=== PATIENT | female | born 1965 | race African-American/Black ===

== ENCOUNTER 2016-10-27 04:14 | Inpatient (IN) | payer OTHER ==
[~2016-10-27] VITALS: Ht 167.6 cm; Wt 100.0 kg
[~2016-10-27 04:14] MED LIST: EXEN10PE SQ; GLIP5 PO; GLUCTAB PO; HYDR-2768 PO; LANTUSP SQ; LOSA25TA31 PO; LOVA40TA PO; METO50TA PO; PROT40TA PO
[2016-10-27 04:18] VITALS: BP 206/110; PULSE 97; RESP 14; TEMP 98.9; O2SAT 97
[2016-10-27] MEDS ORDERED: SODIUM CHLOR 0.9% 1000 ML INJ 1,000 ML IV SCH ×2 (04:31→11:30)
[2016-10-27 04:33] VITALS: O2SAT 97
[2016-10-27] MEDS ORDERED: HYDR25TA5 PO (04:37)
[2016-10-27] MEDS ORDERED: LOSA100T PO (04:37)
[2016-10-27] MEDS ORDERED: OMEP40CA2 PO (04:37)
[2016-10-27] MEDS ORDERED: METF1000 PO (04:37)
[2016-10-27] MEDS ORDERED: METO50TA PO (04:37)
[2016-10-27] MEDS ORDERED: MORPHINE SULFATE 4 MG/ML INJ IV PUSH ONE ×2 (04:45→07:00)
[2016-10-27] MEDS ORDERED: ONDANSETRON HCL 4 MG/2 ML VIAL IVP ONE (04:45)
[2016-10-27] MEDS ORDERED: SODIUM CHLORIDE 0.9% FLUSH 10 ML FLUSH IV FLUSH PRN ×2 (04:45→21:15)
--- NOTE | 2016-10-27 04:53 | PD ---
HPI Chief Complaint: Abdominal Pain Time Seen by Provider: 04:25 Travel History International Travel<30 days: No Contact w/Intl Traveler<30days: No Traveled to known affect area: No History of Present Illness HPI This is a 51-year-old female who presents to the emergency department with abdominal pain that's been present for 3 days, constant, moderate severity, feeling like her abdomen is bloated. She says her last bowel movement was 3 days ago. She says she hasn't passed gas in 24 hours, and she feels nauseous. She's not had any belching. She says this feels similar to 2 years ago right after she had her gastric bypass surgery when they thought she had a bowel obstruction. At that time Dr. Santacruz told her he didn't think that's what was going on. She denies any fevers but does say she's been having some sweats. PFSH Past Medical History Heart Rhythm Problems: No Cancer: No Cardiac Catheterization: No Cardiovascular Problems: No High Cholesterol: No Chest Pain: No Congestive Heart Failure: No Diabetes: Yes Patient Takes Glucophage: No Endocrine: Yes Gastrointestinal Disorders: Yes (GERD) GERD: Yes Genitourinary: No Hepatitis: No Hiatal Hernia: No Heparin Induced Thrombocytopen: No Hypertension: Yes Immune Disorder: No Musculoskeletal: Yes (NECK) Neurologic: No Psychiatric: No Reproductive: No Respiratory: No Myocardial Infarction: No Thyroid Disease: No ?: Not Tubal Ligation: Yes Past Surgical History AICD: No Body Medical Devices: LEFT HIP PINS Coronary Artery Bypass Graft: No Gynecologic Surgery: Yes (TUBAL LIG.) Joint Replacement: No Pacemaker: No Thoracic Surgery: Yes (THIS ADMISSION: [facility] AND Y) Other Surgery: Yes (gastric bypass) Social History Alcohol Use: No Tobacco Use: No Substance Use: No Allergies-Medications (Allergen,Severity, Reaction): Coded Allergies: No Known Allergies (Verified , 10/27/16) Reported Meds & Prescriptions Reported Meds & Active Scripts Active Reported Omeprazole 40 Mg Cap 40 Mg PO DAILY Metoprolol Tartrate 50 Mg Tab 50 Mg PO BID Metformin (Metformin HCl) 1,000 Mg Tab 1,000 Mg PO BIDPC With meals Losartan (Losartan Potassium) 100 Mg Tab 100 Mg PO DAILY Hydrochlorothiazide 25 Mg Tab 25 Mg PO DAILY Review of Systems Except as stated in HPI: all other systems reviewed are Neg Physical Exam Narrative GENERAL:Well appearing, no acute distress SKIN: Focused skin assessment warm and dry. HEAD: Atraumatic. Normocephalic. EYES: Pupils equal and round. No injection or drainage. ENT: Moist mucous membranes NECK: Trachea midline. CARDIOVASCULAR: Regular rate and rhythm. No murmur appreciated. RESPIRATORY: Clear to auscultation. Breath sounds equal bilaterally. GASTROINTESTINAL: Abdomen soft, tender to palpation diffusely with no rebound or guarding. Bowel sounds in all 4 quadrants. MUSCULOSKELETAL: No obvious deformities. NEUROLOGICAL: Awake and alert. No obvious cranial nerve deficits. Moving all extremities. PSYCHIATRIC: Appropriate mood and affect; insight and judgment normal. Data Data Last Documented VS Vital Signs Date Time Temp Pulse Resp B/P Pulse Ox O2 Delivery O2 Flow Rate FiO2 10/27/16 05:29 16 10/27/16 04:33 97 10/27/16 04:18 98.9 97 206/110 Room Air Orders Complete Blood Count With Diff (10/27/16 04:31) Comprehensive Metabolic Panel (10/27/16 04:31) Lipase (10/27/16 04:31) Urinalysis - C+S If Indicated (10/27/16 04:31) Ct Abd/Pel W Iv Contrast(Rout) (10/27/16 04:31) Iv Access Insert/Monitor (10/27/16 04:31) Ecg Monitoring (10/27/16 04:31) Oximetry (10/27/16 04:31) Morphine Inj (Morphine Inj) (10/27/16 04:45) Ondansetron Inj (Zofran Inj) (10/27/16 04:45) Sodium Chlor 0.9% 1000 Ml Inj (Ns 1000 M (10/27/16 04:31) Sodium Chloride 0.9% Flush (Ns Flush) (10/27/16 04:45) Iohexol 350 Inj (Omnipaque 350 Inj) (10/27/16 05:47) Consult General Surgery (10/27/16 ) Admit Order (Ed Use Only) (10/27/16 ) Labs Laboratory Tests Test 10/27/16 10/27/16 04:45 06:05 White Blood Count 9.3 TH/MM3 Red Blood Count 4.74 MIL/MM3 Hemoglobin 12.7 GM/DL Hematocrit 38.1 % Mean Corpuscular Volume 80.3 FL Mean Corpuscular Hemoglobin 26.8 PG Mean Corpuscular Hemoglobin 33.4 % Concent Red Cell Distribution Width 14.2 % Platelet Count 278 TH/MM3 Mean Platelet Volume 6.9 FL Neutrophils (%) (Auto) 71.6 % Lymphocytes (%) (Auto) 21.1 % Monocytes (%) (Auto) 5.8 % Eosinophils (%) (Auto) 0.8 % Basophils (%) (Auto) 0.7 % Neutrophils # (Auto) 6.6 TH/MM3 Lymphocytes # (Auto) 2.0 TH/MM3 Monocytes # (Auto) 0.5 TH/MM3 Eosinophils # (Auto) 0.1 TH/MM3 Basophils # (Auto) 0.1 TH/MM3 CBC Comment DIFF FINAL Differential Comment Sodium Level 137 MEQ/L Potassium Level 3.7 MEQ/L Chloride Level 99 MEQ/L Carbon Dioxide Level 27.4 MEQ/L Anion Gap 11 MEQ/L Blood Urea Nitrogen 4 MG/DL Creatinine 0.50 MG/DL Estimat Glomerular Filtration 156 ML/MIN Rate Random Glucose 149 MG/DL Calcium Level 9.5 MG/DL Total Bilirubin 0.4 MG/DL Aspartate Amino Transf 17 U/L (AST/SGOT) Alanine Aminotransferase 46 U/L (ALT/SGPT) Alkaline Phosphatase 122 U/L Total Protein 7.7 GM/DL Albumin 3.8 GM/DL Lipase 87 U/L Urine Color LIGHT-YELLOW Urine Turbidity HAZY Urine pH 6.5 Urine Specific [place] 1.013 Urine Protein NEG mg/dL Urine Glucose (UA) NEG mg/dL Urine Ketones NEG mg/dL Urine Occult Blood NEG Urine Nitrite NEG Urine Bilirubin NEG Urine Urobilinogen LESS THAN 2.0 MG/DL Urine Leukocyte Esterase NEG Urine RBC 1 /hpf Urine WBC 1 /hpf Urine Squamous Epithelial 24 /hpf Cells Urine Bacteria MANY /hpf Urine Mucus FEW /lpf Microscopic Urinalysis Comment CULT NOT INDICATED MDM Medical Decision Making Medical Screen Exam Complete: Yes Emergency Medical Condition: Yes Interpretation(s) Afebrile, mild tachycardia, hypertension No leukocytosis Electrolytes are reassuring Lipase is normal Urinalysis: No infection Last 24 hours Impressions Abdomen/Pelvis CT 10/27/16 0431 Signed Impressions: Service Date/Time: Thursday, October 27, 2016 05:44 - CONCLUSION: 1. Heterogeneous liver and trace ascites. 2. There are some dilated small bowel loops which can be seen with ileus/partial obstruction. 3. Nonobstructing right lower pole calculi. 4. Gastric bypass. Patrick Calvo MD Differential Diagnosis Bowel obstruction, gastric outlet obstruction, diverticulitis, colitis, pancreatitis Narrative Course This is a 51-year-old female who presents to the emergency department with 3 days of constipation, abdominal discomfort and nausea. She has a distended abdomen on exam. She is placed on a monitor and an IV was established. Labs are obtained which are reassuring. CT demonstrates ileus versus early partial bowel obstruction. Patient will be admitted for bowel rest and we will consult Dr. Santacruz given he is familiar with the patient. Physician Communication Physician Communication Discussed with Dr. Rowell Diagnosis Primary Impression: Partial bowel obstruction Admitting Information Admitting Physician Requests: Observation Monserrat Le MD October 27, 2016 04:53
[2016-10-27 04:55] LABS: AUTOMATED NEUTROPHIL # 6.6 TH/MM3 (1.8-7.7); BASOPHIL # 0.1 TH/MM3 (0-0.2); BASOPHIL % 0.7 % (0.0-2.0); EOSINOPHIL # 0.1 TH/MM3 (0-0.4); EOSINOPHIL % 0.8 % (0.0-4.0); HEMATOCRIT 38.1 % (35.0-46.0); HEMO FLAGS DIFF FINAL; LYMPH % 21.1 % (9.0-44.0); MEAN CELL VOLUME 80.3 FL (80.0-100.0); MEAN CORPUSCULAR HEMOGLOBIN 26.8 PG (27.0-34.0); MEAN CORPUSCULAR HGB CONC 33.4 % (32.0-36.0); MONO % 5.8 % (0.0-8.0); NEUT % 71.6 % (16.0-70.0); PLATELET COUNT 278 TH/MM3 (150-450); RED BLOOD COUNT 4.74 MIL/MM3 (4.00-5.30); RED CELL DISTRIBUTION WIDTH 14.2 % (11.6-17.2); WHITE BLOOD COUNT 9.3 TH/MM3 (4.0-11.0)
[2016-10-27 05:24] LABS: ALT (GPT) 46 U/L (10-53); ANION GAP 11 MEQ/L (5-15); AST (GOT) 17 U/L (15-37); BICARBONATE 27.4 MEQ/L (21.0-32.0); BLOOD UREA NITROGEN 4 MG/DL (7-18); CHLORIDE 99 MEQ/L (98-107); GLOMERULAR FILTRATION RATE 156 ML/MIN (>89); POTASSIUM 3.7 MEQ/L (3.5-5.1); SODIUM (NA) 137 MEQ/L (136-145)
[2016-10-27 05:26] LABS: ALKALINE PHOSPHATASE 122 U/L (45-117); TOTAL BILIRUBIN ADULT 0.4 MG/DL (0.2-1.0)
[2016-10-27] MEDS: METFORMIN HOLD POST IV CONTRAST SCH (05:45)
[2016-10-27] MEDS ORDERED: IOHEXOL 350 MG/ML 10 ML VIAL (for RAD DIAG) IV ONE (05:47)
--- NOTE | 2016-10-27 06:17 | RADRPT ---
EXAM DATE/TIME: 10/27/2016 05:44 [place] COMPARISON: No previous studies available for comparison. INDICATIONS : Abdominal pain. IV CONTRAST: 96 cc Omnipaque 350 (iohexol) IV ORAL CONTRAST: No oral contrast ingested. RADIATION DOSE: 10.43 CTDIvol (mGy) MEDICAL HISTORY : Diabetes mellitus type 2. Hypertension. Gastroesophageal reflux disease. SURGICAL HISTORY : Gastric bypass. Tubal ligation.Left hip pin ENCOUNTER: Initial ACUITY: 1 day PAIN SCALE: 6/10 LOCATION: abdomen TECHNIQUE: Volumetric scanning of the abdomen and pelvis was performed. Using automated exposure control and ad justment of the mA and/or kV according to patient size, radiation dose was kept as low as reasonably achievable to obtain optimal diagnostic quality images. FINDINGS: LOWER LUNGS: Right basilar atelectasis. LIVER: Heterogeneous density without lesion. There is no dilation of the biliary tree. No calcified gallst ones. Minimal perihepatic ascites. SPLEEN: Normal size without lesion. PANCREAS: Within normal limits. KIDNEYS: Normal in size and shape. There is no mass, stone or hydronephrosis on the left. No hydronephrosis o f the right kidney however there are 2 adjacent nonobstructing calculi measuring 3-4 mm in the lower pole right kidney. ADRENAL GLANDS: Within normal limits. VASCULAR: There is no aortic aneurysm. BOWEL/MESENTERY: There are multiple dilated small bowel loops. Postsurgical changes involving the stomach consistent w ith previous gastric bypass. ABDOMINAL WALL: Within normal limits. RETROPERITONEUM: There is no lymphadenopathy. BLADDER: No wall thickening or mass. REPRODUCTIVE: Enlarged uterus. INGUINAL: There is no lymphadenopathy or hernia. MUSCULOSKELETAL: Multiple plate and screws in the left acetabulum. CONCLUSION: 1. Heterogeneous liver and trace ascites. 2. There are some dilated small bowel loops which can be seen with ileus/partial obstruction. 3. Nonobstructing right lower pole calculi. 4. Gastric bypass. Patrick Calvo MD on October 27, 2016 at 6:10 Board Certified Radiologist. This report was verified electronically.
[2016-10-27 06:31] LABS: BACTERIA, URINE MANY /hpf; BLOOD, URINE NEG (NEG); COMMENT (UR) CULT NOT INDICATED; CULTURE IF INDICATED CULT NOT INDICATED; GLUCOSE,URINE NEG (NEG); KETONE, URINE NEG (NEG); MUCUS URINE FEW /lpf (OCC); NITRITE,URINE NEG (NEG); PH, URINE 6.5 (5.0-8.5); SQUAMOUS EPITHELIAL CELL URINE 24 /hpf (0-5); URINE COLOR LIGHT-YELLOW (YELLW/STRAW)
[2016-10-27 06:50] VITALS: BP 162/96; PULSE 94; RESP 16; O2SAT 97
[2016-10-27] MEDS ORDERED: ONDANSETRON HCL 4 MG/2 ML VIAL IV ONE (07:00)
[2016-10-27] MEDS ORDERED: ONDANSETRON HCL 4 MG/2 ML VIAL IV PUSH PRN (07:00)
[2016-10-27] MEDS ORDERED: ENALAPRILAT 1.25 MG/ML VIAL IV PUSH PRN (11:30)
[2016-10-27] MEDS: MORPHINE SULFATE 4 MG/ML INJ IV PUSH PRN ×2 (11:45→15:21)
[2016-10-27] MEDS ORDERED: LACTATED RINGER'S 1000 ML INJ 1,000 ML IV ONE (12:00)
[2016-10-27] MEDS ORDERED: ONDANSETRON HCL 4 MG/2 ML VIAL IV PUSH ONE (12:00)
[2016-10-27] MEDS ORDERED: PROPOFOL 200 MG/20 ML AMP IV ONE (12:00)
[2016-10-27] MEDS: INSULIN ASPART SUPPLEMENTAL SCALE SQ SCH ×3 (12:00→22:49)
[2016-10-27] MEDS ORDERED: NEOSTIGMINE 3 MG/3 ML SYR IV ONE (12:00)
[2016-10-27] MEDS ORDERED: PHENYLEPH/NS 1000 MCG/10 ML SYR IV ONE (12:00)
[2016-10-27] MEDS: PANTOPRAZOLE SODIUM 40 MG VIAL IV PUSH SCH (12:14)
[2016-10-27 12:23] VITALS: BP 141/76; PULSE 113; RESP 18; TEMP 97.6; O2SAT 95
[2016-10-27] MEDS ORDERED: metroNIDAZOLE 500 MG INJ 100 ML IV SCH (12:45)
[2016-10-27] MEDS ORDERED: ceFAZolin 2 GM PREMIX 50 ML IV SCH (12:45)
--- NOTE | 2016-10-27 13:16 | MH ---
cc: NELLY NARAYAN DATE OF ADMISSION: 10/27/2016 DATE OF : 1965 HISTORY This is a 51-year-old female who underwent laparoscopic Grady-en-Y gastric bypass approximately 3 years and she is doing well until approximately 3 days ago when she began experiencing abdominal pain. Pain started a left lower quadrant and now almost to the epigastrium. She was seen at [facility] and thought to have enteritis and was sent home. This was yesterday, as this process of pain persisted. The patient presented to [place] where she had a CT scan that revealed dilated bowel questionable partial obstruction versus ileus. She last had a bowel movement approximately 3 days ago she does have nausea and no emesis. No fevers or chills or chest pain or shortness of breath. PAST SURGICAL HISTORY Significant for above as well as tubal ligation. PAST MEDICAL HISTORY: Significant for hypertension. As well as type 2 diabetes. MEDICATIONS: She is on medication at home that includes 1. Metoprolol 2. Losartan 3. Hydrochlorothiazide. 4. Metformin. ALLERGIES NO KNOWN DRUG ALLERGIES. SOCIAL HISTORY: She does not smoke or drink alcohol. FAMILY HISTORY: Family history is noncontributory. REVIEW OF SYSTEMS Review of systems significant for above. All other 10-point review negative. PHYSICAL EXAMINATION: IN GENERAL: On my exam she is laying in a stretcher in no acute distress. HEAD, EYES, EARS, NOSE, AND THROAT: Her pupils are equal and reactive. NECK: Trachea is midline. LUNGS: Respirations clear. CARDIOVASCULAR SYSTEM: Regular. MUSCULOSKELETAL: No deformities. NEUROLOGICAL: Nonfocal. ABDOMEN: Soft, distended, positive tenderness in the epigastrium and lower abdomen. LABORATORY FINDINGS: The patient's white count is 9.3 with neutrophils of 71. ASSESSMENT This is a patient history of gastric bypass with a bowel obstruction. I will take the patient to the operating room for laparoscopy, possible laparotomy with possible lysis of adhesions. Risks and benefits explained to the patient to include but not be exclusive to infection, bleeding, solid organ and injury, hollow organ injury. The patient verbalized understanding and consent was obtained. Will proceed to operating room. MD RONNY Abdullahi/ /12:41 PM /1:01 PM
--- NOTE | 2016-10-27 17:24 | HHI.HP ---
HPI Service [facility] Hospitalists Primary Care Physician Henri Donahue Jr, MD Admission Diagnosis ileus Chief Complaint: abdomen pain Travel History International Travel<30 Days: No Contact w/Intl Traveler <30 Da: No Traveled to Known Affected Are: No History of Present Illness Pt is 51 yo with dm, htn, s/p gastric aric en y 3 yrs ago. Developed left lower quad pain then radiation to epigstric area. no bm x 3 days. Seen in [place] and told enteritis. CT here concerning for psbo vs ileus. Given morphine in ED for pain and IVF. seen by Dr Aguilar and Lap planned today. Review of Systems Other abdomen pain no bm Past Family Social History Past Medical History htn dm2 gastric aric en Y 3 yrs ago tubal ligation Reported Medications Omeprazole 40 Mg Cap 40 Mg PO DAILY Metoprolol Tartrate 50 Mg Tab 50 Mg PO BID Metformin (Metformin HCl) 1,000 Mg Tab 1,000 Mg PO BIDPC With meals Losartan (Losartan Potassium) 100 Mg Tab 100 Mg PO DAILY Hydrochlorothiazide 25 Mg Tab 25 Mg PO DAILY Allergies: Coded Allergies: No Known Allergies (Verified , 10/27/16) Family History nc Social History no etoh/tob Physical Exam Vital Signs heart reg lung cta abd /s/nt ext no edema Vital Signs Date Time Temp Pulse Resp B/P Pulse Ox O2 Delivery O2 Flow Rate FiO2 10/27/16 15:26 18 10/27/16 12:23 97.6 113 18 141/76 95 10/27/16 06:50 94 16 162/96 97 10/27/16 05:29 16 10/27/16 04:33 97 10/27/16 04:18 98.9 97 14 206/110 97 Room Air Laboratory Laboratory Tests Test 10/27/16 10/27/16 04:45 06:05 White Blood Count 9.3 Red Blood Count 4.74 Hemoglobin 12.7 Hematocrit 38.1 Mean Corpuscular Volume 80.3 Mean Corpuscular Hemoglobin 26.8 Mean Corpuscular Hemoglobin 33.4 Concent Red Cell Distribution Width 14.2 Platelet Count 278 Mean Platelet Volume 6.9 Neutrophils (%) (Auto) 71.6 Lymphocytes (%) (Auto) 21.1 Monocytes (%) (Auto) 5.8 Eosinophils (%) (Auto) 0.8 Basophils (%) (Auto) 0.7 Neutrophils # (Auto) 6.6 Lymphocytes # (Auto) 2.0 Monocytes # (Auto) 0.5 Eosinophils # (Auto) 0.1 Basophils # (Auto) 0.1 CBC Comment DIFF FINAL Differential Comment Sodium Level 137 Potassium Level 3.7 Chloride Level 99 Carbon Dioxide Level 27.4 Anion Gap 11 Blood Urea Nitrogen 4 Creatinine 0.50 Estimat Glomerular Filtration 156 Rate Random Glucose 149 Calcium Level 9.5 Total Bilirubin 0.4 Aspartate Amino Transf 17 (AST/SGOT) Alanine Aminotransferase 46 (ALT/SGPT) Alkaline Phosphatase 122 Total Protein 7.7 Albumin 3.8 Lipase 87 Urine Color LIGHT-YELLOW Urine Turbidity HAZY Urine pH 6.5 Urine Specific [place] 1.013 Urine Protein NEG Urine Glucose (UA) NEG Urine Ketones NEG Urine Occult Blood NEG Urine Nitrite NEG Urine Bilirubin NEG Urine Urobilinogen LESS THAN 2.0 Urine Leukocyte Esterase NEG Urine RBC 1 Urine WBC 1 Urine Squamous Epithelial 24 Cells Urine Bacteria MANY Urine Mucus FEW Microscopic Urinalysis Comment CULT NOT INDICATED Result Diagram: 10/27/165 10/27/16444 Assessment and Plan Problem List: (1) Partial bowel obstruction Status: Acute Plan: Pt is 51 yo with gastric aric en y x 3 yrs presented with abdomen pain and no bm CT concerning for ileus vs early psbo ivf and pain meds npo ssi and hold oha gen surg to take for lap and possible DORINDA today. dvt prophylaxis d/c when ok with gen surg. (2) DM (diabetes mellitus) Status: Chronic Plan: see above (3) HTN (hypertension) Status: Chronic (4) History of Aric-en-Y gastric bypass Status: Chronic Nba Joseph MD October 27, 2016 17:24
[2016-10-27] MEDS ORDERED: fentaNYL CITRATE 250 MCG/5 ML AMP ONE ×2 (18:37→20:08)
[2016-10-27] MEDS ORDERED: DICLOFENAC SODIUM 37.5 MG/ML VIAL IV PUSH ONE (18:37)
[2016-10-27] MEDS ORDERED: ACETAMINOPHEN 1000 MG/100 ML VIAL IV ONE (18:37)
[2016-10-27] MEDS ORDERED: MORPHINE SULFATE 4 MG/ML INJ IV PRN (21:15)
[2016-10-27] MEDS ORDERED: Post-op Orders (for Pharmacy) MISC XX ONE (21:15)
[2016-10-27] MEDS ORDERED: ZOLPIDEM TARTRATE 5 MG TAB PO PRN (21:15)
[2016-10-27] MEDS ORDERED: oxyCODONE/ACETAMINOPHEN 5 MG/325 MG TAB PO PRN (21:15)
[2016-10-27] MEDS ORDERED: ONDANSETRON HCL 4 MG/2 ML VIAL IV PRN (21:15)
[2016-10-27] MEDS ORDERED: *morphine SULFATE 8 MG/ML PERIprocedure ONLY ONE (21:46)
--- NOTE | 2016-10-27 21:49 | EKG ---
Date Performed: 10/27/2016 Time Performed: 13:23:16 PTAGE: 51 years EKG: SINUS TACHYCARDIA POSSIBLE ANTERIOR MYOCARDIAL INFARCTION INFERIOR MYOCARDIAL INFARCTION AB NORMAL ECG PREVIOUS TRACING : 12/14/2010 05.15 DOCTOR: Ana Nolen Interpretating Date/Time 10/27/2016 21:46:29
[2016-10-27] MEDS: SODIUM CHLOR 0.9% 1000 ML INJ 1,000 ML IV SCH (21:53)
[2016-10-27] MEDS ORDERED: DO NOT ADM ANY ANTICOAGULANT DRUGS PRN (22:15)
[2016-10-27] MEDS: oxyCODONE/ACETAMINOPHEN 5 MG/325 MG TAB PO PRN (22:48)
[2016-10-28] VITALS (7 sets, daily range): BP systolic 119–148; BP diastolic 65–81; PULSE 81–112; RESP 17–20; TEMP 97.5–98.9; O2SAT 91–98
[2016-10-28] MEDS: oxyCODONE/ACETAMINOPHEN 5 MG/325 MG TAB PO PRN ×5 (03:02→19:28)
[2016-10-28] MEDS: metroNIDAZOLE 500 MG INJ 100 ML IV SCH ×3 (03:02→19:26)
[2016-10-28] MEDS: METFORMIN HOLD POST IV CONTRAST SCH (03:06)
[2016-10-28] MEDS: INSULIN ASPART SUPPLEMENTAL SCALE SQ SCH ×3 (03:06→12:00)
[2016-10-28 04:20] LABS: BASOPHIL % 0.1 % (0.0-2.0); HEMATOCRIT 35.2 % (35.0-46.0); HEMO FLAGS DIFF FINAL; LYMPH % 7.2 % (9.0-44.0); LYMPHOCYTE # 0.7 TH/MM3 (1.0-4.8); MEAN CELL VOLUME 81.7 FL (80.0-100.0); MEAN CORPUSCULAR HEMOGLOBIN 26.2 PG (27.0-34.0); MEAN CORPUSCULAR HGB CONC 32.1 % (32.0-36.0); MONO % 7.2 % (0.0-8.0); NEUT % 85.5 % (16.0-70.0); PLATELET COUNT 238 TH/MM3 (150-450); RED BLOOD COUNT 4.32 MIL/MM3 (4.00-5.30); RED CELL DISTRIBUTION WIDTH 13.8 % (11.6-17.2); WHITE BLOOD COUNT 9.4 TH/MM3 (4.0-11.0)
[2016-10-28] MEDS: METOPROLOL TARTRATE 50 MG TAB PO SCH ×2 (07:34→19:28)
[2016-10-28] MEDS: HYDROCHLOROTHIAZIDE 25 MG TAB PO SCH (07:34)
[2016-10-28] MEDS: DOCUSATE SODIUM 100 MG CAP PO SCH ×2 (07:34→19:27)
[2016-10-28] MEDS: LOSARTAN 50 MG TAB PO SCH (07:34)
[2016-10-28] MEDS: SODIUM CHLOR 0.9% 1000 ML INJ 1,000 ML IV SCH ×2 (07:38→18:00)
[2016-10-28] MEDS: SODIUM CHLORIDE 0.9% FLUSH 10 ML FLUSH IV FLUSH SCH ×2 (08:33→19:29)
--- NOTE | 2016-10-28 10:39 | EKG ---
Date Performed: 10/27/2016 Time Performed: 21:40:59 PTAGE: 51 years EKG: Sinus rhythm WITH OCCASIONAL SUPRAVENTRICULAR PREMATURE COMPLEXES BORDERLINE LEFT AXIS DEVIATION LOW QRS VOLTAGE IN PRECORDIAL LEADS BORDERLINE ECG PREVIOUS TRACING : 10/27/2016 13.23 DOCTOR: Ana Nolen Interpretating Date/Time 10/28/2016 10:38:33
[2016-10-28] MEDS: PANTOPRAZOLE SODIUM 40 MG VIAL IV PUSH SCH (11:12)
--- NOTE | 2016-10-28 13:04 | HHI.PR ---
Subjective Subjective Notes comfortable pain controlled pos flatus Objective Vitals/I&O Vital Signs Date Time Temp Pulse Resp B/P Pulse Ox O2 Delivery O2 Flow Rate FiO2 10/28/16 12:00 98.8 81 17 123/77 97 10/28/16 08:58 21 10/27/16 22:13 Nasal Cannula 2 Labs Laboratory Tests Test 10/28/16 02:49 White Blood Count 9.4 Red Blood Count 4.32 Hemoglobin 11.3 Hematocrit 35.2 Mean Corpuscular Volume 81.7 Mean Corpuscular Hemoglobin 26.2 Mean Corpuscular Hemoglobin 32.1 Concent Red Cell Distribution Width 13.8 Platelet Count 238 Mean Platelet Volume 7.1 Neutrophils (%) (Auto) 85.5 Lymphocytes (%) (Auto) 7.2 Monocytes (%) (Auto) 7.2 Eosinophils (%) (Auto) 0.0 Basophils (%) (Auto) 0.1 Neutrophils # (Auto) 8.0 Lymphocytes # (Auto) 0.7 Monocytes # (Auto) 0.7 Eosinophils # (Auto) 0.0 Basophils # (Auto) 0.0 CBC Comment DIFF FINAL Differential Comment Abdomen: Post-op tenderness Extremities: Perfused Wound Wound : Wound Location: Abdomen Appearance: Clean & Dry A/P Assessment and Plan S/p lap DORINDA doing well advance diet likely d/c in am Maximo Santacruz MD October 28, 2016 13:03
[2016-10-28] MEDS ORDERED: GLUCAGON 1 MG/ML VIAL OTHER PRN (13:45)
[2016-10-28] MEDS ORDERED: DEXTROSE 50% IN WATER 50 ML VIAL(D50) IV PUSH PRN (13:45)
--- NOTE | 2016-10-28 15:11 | MP ---
cc: NELLY NARAYAN DATE OF SURGERY: 10/27/2016. PREOPERATIVE DIAGNOSIS: Small bowel obstruction. POSTOPERATIVE DIAGNOSIS: Small bowel obstruction. OPERATIVE PROCEDURE PERFORMED: Laparoscopic lysis of adhesions. SURGEON: Nelly Narayan MD. ANESTHESIA: General endotracheal anesthesia. ESTIMATED BLOOD LOSS: Scant FINDINGS: Adhesive band from the patient's fallopian tube to a small bowel mesentery causing a closed loop obstruction. The small bowel appeared viable. No evidence of strictures. The patient was also noted to have a hiatal hernia. The Grady limb was decompressed. There was a defect in her enterostomy and this was closed at the time of this operation. SPECIMENS: None. COMPLICATIONS: None. DESCRIPTION OF THE PROCEDURE IN DETAIL: The patient was brought to the operating room and placed on operating table in the supine position. Bilateral sequential inflation devices were placed on lower extremity. General anesthesia instituted. Robbins catheter placed. Antibiotics initiated. The abdomen was prepped and draped sterilely. A point in the left upper quadrant was anesthetized with 0.25% Marcaine with epinephrine. A skin incision was made and a 5 mm OptiVu port placed under direct vision and a pneumoperitoneum created. Under direct vision, a 5 mm supraumbilical port, 5 mm left lower quadrant port and a 5 mm epigastric port was placed. Prior to placement of all ports, the skin and peritoneum were anesthetized with 0.25% Marcaine with epinephrine. The patient's abdominal cavity was inspected. Findings as above. The adhesive band in the lower abdomen was using the harmonic scalpel. At the enteroenterostomy from her gastric bypass there was a defect. This was closed with 2-0 silk suture in a running manner. There was no Field defect identified. The patient was also noted to have a hiatal hernia which was not obstructing at this point. The abdominal cavity was inspected for hemostasis, which was assured. During the operation there was an area of serosal tear and a dilated small bowel. This serosal tear was approximated with 3-0 Vicryl suture in an interrupted manner. The CO2 was then released. All ports were removed. All skin incisions were closed with 4-0 Monocryl. The abdominal wall was cleaned and a sterile dressing placed. The patient was awakened and taken to the recovery room. MD RONNY Abdullahi/AI /1:38 PM /3:06 PM
[2016-10-28] MEDS: INSULIN NovoLIN REGULAR SUPPLEMENTAL SCALE SQ SCH ×2 (16:00→19:31)
[2016-10-28] MEDS: HYDROmorphone HCL PF 1 MG/ML VIAL IV PRN ×2 (16:24→20:46)
[2016-10-28] MEDS: ENOXAPARIN SODIUM 40 MG/0.4 ML SYRINGE SQ SCH (19:28)
[2016-10-29] VITALS: BP 134/85; PULSE 78; RESP 17; TEMP 98; O2SAT 95
[2016-10-29] MEDS: oxyCODONE/ACETAMINOPHEN 5 MG/325 MG TAB PO PRN ×3 (01:02→19:16)
[2016-10-29] MEDS: HYDROmorphone HCL PF 1 MG/ML VIAL IV PRN ×5 (01:48→20:50)
[2016-10-29] MEDS: SODIUM CHLOR 0.9% 1000 ML INJ 1,000 ML IV SCH ×3 (01:50→13:26)
[2016-10-29] MEDS: INSULIN NovoLIN REGULAR SUPPLEMENTAL SCALE SQ SCH ×4 (06:21→19:25)
[2016-10-29 08:00] VITALS: BP 128/78; PULSE 94; RESP 18; TEMP 98.2; O2SAT 92
[2016-10-29] MEDS: HYDROCHLOROTHIAZIDE 25 MG TAB PO SCH (08:16)
[2016-10-29] MEDS: DOCUSATE SODIUM 100 MG CAP PO SCH ×2 (08:16→19:16)
[2016-10-29] MEDS: LOSARTAN 50 MG TAB PO SCH (08:16)
[2016-10-29] MEDS: METOPROLOL TARTRATE 50 MG TAB PO SCH ×2 (08:16→19:17)
[2016-10-29] MEDS: SODIUM CHLORIDE 0.9% FLUSH 10 ML FLUSH IV FLUSH SCH ×2 (09:00→19:22)
[2016-10-29 12:00] VITALS: BP 152/82; PULSE 77; RESP 17; TEMP 98.2; O2SAT 97
[2016-10-29] MEDS: PANTOPRAZOLE SODIUM 40 MG VIAL IV PUSH SCH (12:41)
--- NOTE | 2016-10-29 13:03 | HHI.PR ---
Subjective Subjective Notes c/o abdominal pain pos flatus Objective Vitals/I&O Vital Signs Date Time Temp Pulse Resp B/P Pulse Ox O2 Delivery O2 Flow Rate FiO2 10/29/16 12:00 98.2 77 17 152/82 97 10/28/16 08:58 21 10/27/16 22:13 Nasal Cannula 2 Abdomen: Post-op tenderness Extremities: Perfused Wound Wound : Wound Location: Abdomen Appearance: Clean & Dry A/P Assessment and Plan S/p lap DORINDA POD # 2 normal post op changes likely d/c in am Maximo Santacruz MD October 29, 2016 13:03
[2016-10-29] MEDS: POLYETHYLENE GLYCOL 17 GM PKG PO SCH (14:45)
[2016-10-29 16:00] VITALS: BP 135/74; PULSE 91; RESP 18; TEMP 98; O2SAT 94
[2016-10-29] MEDS: ENOXAPARIN SODIUM 40 MG/0.4 ML SYRINGE SQ SCH (19:15)
[2016-10-29 20:00] VITALS: BP 160/80; PULSE 94; RESP 20; TEMP 97.8; O2SAT 97
[2016-10-30] VITALS: BP 148/78; PULSE 88; RESP 20; TEMP 98.2; O2SAT 95
[2016-10-30] MEDS: oxyCODONE/ACETAMINOPHEN 5 MG/325 MG TAB PO PRN ×3 (03:54→12:53)
[2016-10-30] MEDS: INSULIN NovoLIN REGULAR SUPPLEMENTAL SCALE SQ SCH (06:36)
[2016-10-30] MEDS: DOCUSATE SODIUM 100 MG CAP PO SCH (07:50)
[2016-10-30] MEDS: HYDROCHLOROTHIAZIDE 25 MG TAB PO SCH (07:51)
[2016-10-30] MEDS: METOPROLOL TARTRATE 50 MG TAB PO SCH (07:51)
[2016-10-30] MEDS: LOSARTAN 50 MG TAB PO SCH (07:51)
[2016-10-30] MEDS: POLYETHYLENE GLYCOL 17 GM PKG PO SCH (07:54)
[2016-10-30 08:00] VITALS: BP 156/98; PULSE 93; RESP 18; TEMP 98.2; O2SAT 97
--- NOTE | 2016-10-30 10:40 | HHI.PR ---
Subjective Subjective Notes 51yo female with history of RNY approximately 3 years ago, now POD #3 laparoscopic lysis of adhesions. Sitting up in chair in no acute distress. Passing flatus. Tolerating fluids Objective Vitals/I&O Vital Signs, 24 Hour Date Time Temp Pulse Resp B/P Pulse Ox O2 Delivery O2 Flow Rate FiO2 10/30/16 08:00 98.2 93 18 156/98 97 10/30/16 00:00 98.2 88 20 148/78 95 10/29/16 20:00 97.8 94 20 160/80 97 10/29/16 16:00 98.0 91 18 135/74 94 10/29/16 12:00 98.2 77 17 152/82 97 Allergies Coded Allergies No Known Allergies (Verified10/27/16) Intake/Outtake 10/30/16 10/30/16 11:00 23:00 Intake Total 1245 ml Output Total 500 ml Balance 745 ml Orders-Josué Youngblood Procedure Category Date Status Time Magnesium Hydroxide MED 10/30/16 Verified Liq (Milk Of Magnesi 11:00 Active Scripts Active Reported Omeprazole 40 Mg Cap 40 Mg PO DAILY Metoprolol Tartrate 50 Mg Tab 50 Mg PO BID Metformin (Metformin HCl) 1,000 Mg Tab 1,000 Mg PO BIDPC With meals Losartan (Losartan Potassium) 100 Mg Tab 100 Mg PO DAILY Hydrochlorothiazide 25 Mg Tab 25 Mg PO DAILY Vital Signs Date Time Temp Pulse Resp B/P Pulse Ox O2 Delivery O2 Flow Rate FiO2 10/30/16 08:00 98.2 93 18 156/98 97 10/28/16 08:58 21 10/27/16 22:13 Nasal Cannula 2 Labs Laboratory Tests Test 10/28/16 02:49 Hemoglobin 11.3 GM/DL (11.6-15.3) Mean Corpuscular Hemoglobin 26.2 PG (27.0-34.0) Neutrophils (%) (Auto) 85.5 % (16.0-70.0) Lymphocytes (%) (Auto) 7.2 % (9.0-44.0) Neutrophils # (Auto) 8.0 TH/MM3 (1.8-7.7) Lymphocytes # (Auto) 0.7 TH/MM3 (1.0-4.8) Radiology Last Impressions Abdomen/Pelvis CT 10/27/16 9202 Signed Impressions: Service Date/Time: Thursday, October 27, 2016 05:44 - CONCLUSION: 1. Heterogeneous liver and trace ascites. 2. There are some dilated small bowel loops which can be seen with ileus/partial obstruction. 3. Nonobstructing right lower pole calculi. 4. Gastric bypass. Patrick Calvo MD Cardiovascular: Regular Lungs: Clear Abdomen: Post-op tenderness Extremities: Perfused Wound Wound : Wound Location: Abdomen Appearance: Clean & Dry A/P Assessment and Plan Continue with frequent ambulation Advance diet as tolerated MoM x1 now and PRN at home. May also use Miralax PRN The exam, history, and the medical decision-making described in the above note were completed with the assistance of the mid-level provider. I reviewed and agree with the findings presented. I attest that I had a [id number] encounter with the patient on the same day, and personally performed and documented my assessment and findings in the medical record. Discharge Planning D/C home later today Follow up with Dr. Santacruz on Saturday Josué Youngblood October 30, 2016 10:40 Maximo Santacruz MD November 07, 2016 09:29
[2016-10-30] MEDS ORDERED: MAGNESIUM HYDROXIDE SUSP 30 ML CUP PO ONE (11:00)
[2016-10-30] MEDS ORDERED: DILA2TAB2 PO (11:58)
[2016-10-30 12:00] VITALS: BP 128/80; PULSE 75; RESP 18; TEMP 98.1; O2SAT 98
== END 2016-10-30 13:15 | disposition home or self-care (01) | DRG 330 ==
LOC: NEPE 04:14 → NEDA 06:31 → NEPGCP 09:03 → N07B 16:40 → OBSVTOIN 21:14 → N07A 22:24
PROVIDERS: ADMIT Surgery; ATTEND Surgery
PROC: 0DQ84ZZ Repair Small Intestine, Percutaneous Endoscopic Approach (ICD-10-PCS; 2016-10-27)
PROC: 0DN84ZZ Release Small Intestine, Percutaneous Endoscopic Approach (ICD-10-PCS; principal; 2016-10-27 18:57)
DX: K56.5 Intestinal adhesions [bands] with obstruction (postinfection) (principal); K95.89 Other complications of other bariatric procedure; I10 Essential (primary) hypertension; Z98.84 Bariatric surgery status; K21.9 Gastro-esophageal reflux disease without esophagitis; E11.9 Type 2 diabetes mellitus without complications; Z79.84 Long term (current) use of oral hypoglycemic drugs; K44.9 Diaphragmatic hernia without obstruction or gangrene
CPT/HCPCS: 74177; 76937; 80053; 81001; 82948; 83690; 85025; 93005; 94150; 96361; 96374; 96375; C9113; J0131; J0690; J1130; J1170; J1650; J1815; J2270; J2370; J2405; J2710; J3010; J7030; J7120; Q9967